=== PATIENT | female | born 1995 | race Caucasian/White ===

== ENCOUNTER 2017-10-12 16:24 | Emergency (ER) | payer OTHER ==
[2017-10-12 16:51] VITALS: BP 109/59
--- NOTE | 2017-10-12 18:28 | ER Document Report ---
ED Medical Screen (RME) - General Chief Complaint: Vag Bleeding, +preg <12wks Stated Complaint: VAGINAL BLEEDING/CRAMPING Time Seen by Provider: 10/12/17 18:27 Notes: Patient states that she believes she is 3-4 days late on her period. She states that she has had 3 positive test at home. She states today she began with cramping and bleeding. TRAVEL OUTSIDE OF THE [place] IN LAST 30 DAYS: No - Related Data Allergies/Adverse Reactions: No Known Allergies Allergy (Unverified 10/12/17 16:28) Past Medical History - General Last Menstrual Period: 09/06/2017 - Social History Chew tobacco use (# tins/day): No Frequency of alcohol use: None Drug Abuse: None Renal/ Medical History: Denies: Hx Peritoneal Dialysis Past Surgical History: Reports: Hx Section Physical Exam - Vital signs Vitals: Temp Pulse Resp BP Pulse Ox 99.2 F 81 16 109/59 L 100 10/12/17 16:50 10/12/17 16:50 10/12/17 16:50 10/12/17 16:50 10/12/17 16:50 Course - Vital Signs Vital signs: Temp Pulse Resp BP Pulse Ox 99.2 F 81 16 109/59 L 100 10/12/17 16:50 10/12/17 16:50 10/12/17 16:50 10/12/17 16:50 10/12/17 16:50
[2017-10-12 18:50] LABS: ABSOLUTE BASOPHILS # (AUTO) 0.1 10^3/uL (0.0-0.2); ABSOLUTE EOSINOPHILS # (AUTO) 0.2 10^3/uL (0.0-0.6); ABSOLUTE LYMPHOCYTES (AUTO) 3.7 10^3/uL (0.5-4.7); ABSOLUTE MONOCYTES (AUTO) 0.9 10^3/uL (0.1-1.4); ABSOLUTE NEUT (AUTO) 9.4 10^3/uL (1.7-8.2); BASOPHILS % (AUTO) 0.4 % (0-2); EOSINOPHILS % (AUTO) 1.3 % (0-6); HEMATOCRIT 35.4 % (36.0-47.0); HEMOGLOBIN 10.7 g/dL (12.0-15.5); LYMPHOCYTES % (AUTO) 26.3 % (13-45); MEAN CORPUSCULAR HEMOGLOBIN 21.5 pg (27.0-33.4); MEAN CORPUSCULAR HGB CONC 30.3 g/dL (32.0-36.0); MEAN CORPUSCULAR VOLUME 71 fl (80-97); PLATELET COUNT 405 10^3/uL (150-450); RED BLOOD COUNT 4.99 10^6/uL (3.72-5.28); RED CELL DISTRIBUTION WIDTH 18.6 % (11.5-14.0); TOTAL CELLS COUNTED % (AUTO) 100 %; WHITE BLOOD COUNT 14.2 10^3/uL (4.0-10.5)
[2017-10-12 19:10] LABS: APPEARANCE,URINE CLEAR; BILIRUBIN,URINE NEGATIVE (NEGATIVE); COLOR,URINE YELLOW; GLUCOSE, URINE NEGATIVE (NEGATIVE); KETONES,URINE NEGATIVE (NEGATIVE); LEUKOCYTE ESTERASE,URINE NEGATIVE (NEGATIVE); NITRITE,URINE NEGATIVE (NEGATIVE); PROTEIN,URINE NEGATIVE (NEGATIVE); URINE SPECIFIC GRAVITY 1.019
[2017-10-12 19:12] LABS: ALANINE AMINOTRANSFERASE 23 U/L (9-52); ALBUMIN 4.4 g/dL (3.5-5.0); ALKALINE PHOSPHATASE 85 U/L (38-126); ANION GAP 13 (5-19); ASPARTATE AMINO TRANSFERASE 15 U/L (14-36); BILIRUBIN,DIRECT 0.1 mg/dL (0.0-0.4); BILIRUBIN,TOTAL 0.1 mg/dL (0.2-1.3); BLOOD UREA NITROGEN 8 mg/dL (7-20); CALCIUM 9.7 mg/dL (8.4-10.2); CARBON DIOXIDE 26 mmol/L (22-30); CHLORIDE 106 mmol/L (98-107); GLUCOSE 96 mg/dL (75-110); POTASSIUM 3.9 mmol/L (3.6-5.0); SODIUM 144.6 mmol/L (137-145); TOTAL PROTEIN 7.5 g/dL (6.3-8.2)
--- NOTE | 2017-10-12 19:53 | RADIOLOGY REPORT (SQ) ---
EXAM DESCRIPTION: U/S OB TRANSVAGINAL W/O DOP COMPLETED DATE/TIME: 10/12/2017 7:44 pm REASON FOR STUDY: pain/bleeding/preg COMPARISON: None. TECHNIQUE: Transvaginal static and realtime grayscale images acquired of the pelvis. Additional joe cted spectral and color Doppler images recorded. All images stored on PACs. BHC.6 LIMITATIONS: None. FINDINGS: UTERUS: No visualized intrauterine . Possibly tiny gestational sac lower uterine segment. RIGHT ADNEXA: Ovary not identified. No adnexal free fluid. No adnexal masses. LEFT ADNEXA: Ovary not identified. No adnexal free fluid. No adnexal masses. FREE FLUID: None. OTHER: No other significant finding. IMPRESSION: No definitive intrauterine . There is possibly a tiny gestational sac in the l ower uterine segment. Likely AB in progress. Consider serial followup by beta HCG. FOLLOW-UP ULTRASOUND AND SERIAL BHCG LEVELS STRONGLY RECOMMENDED TO ACCURATELY ASSESS STATU S. TECHNICAL DOCUMENTATION: JOB ID: [id number] [employer]- All Rights Reserved Reading location - IP/workstation name: [email or web address]
--- NOTE | 2017-10-12 20:17 | ER Document Report ---
ED General - General Chief Complaint: Vag Bleeding, +preg <12wks Stated Complaint: VAGINAL BLEEDING/CRAMPING Time Seen by Provider: 10/12/17 18:27 TRAVEL OUTSIDE OF THE [place] IN LAST 30 DAYS: No - HPI Patient complains to provider of: Vaginal bleeding positive Notes: Patient coming in for vaginal spotting starting last 24 hours patient states she has gone through approximately 2 packs a day. Patient states to go home test that was positive last menstrual cycle was partially 4 weeks ago. Patient is a . Denies any trauma denies any recent sexual intercourse. Patient denies any vaginal discharge states lower abdominal cramping and lower back pain. - Related Data Allergies/Adverse Reactions: No Known Allergies Allergy (Unverified 10/12/17 16:28) Past Medical History - General Last Menstrual Period: 09/06/2017 - Social History Smoking Status: Smoker,Current Status Unk Chew tobacco use (# tins/day): No Frequency of alcohol use: None Drug Abuse: None Family History: Reviewed & Not Pertinent Patient has suicidal ideation: No Patient has homicidal ideation: No Renal/ Medical History: Denies: Hx Peritoneal Dialysis Past Surgical History: Reports: Hx Section Review of Systems - Review of Systems Constitutional: No symptoms reported EENT: No symptoms reported Cardiovascular: No symptoms reported Respiratory: No symptoms reported Gastrointestinal: No symptoms reported Genitourinary: No symptoms reported Female Genitourinary: Vaginal bleeding Musculoskeletal: No symptoms reported Skin: No symptoms reported Hematologic/Lymphatic: No symptoms reported Neurological/Psychological: No symptoms reported -: Yes All other systems reviewed and negative Physical Exam - Vital signs Vitals: Temp Pulse Resp BP Pulse Ox 99.2 F 81 16 109/59 L 100 10/12/17 16:50 10/12/17 16:50 10/12/17 16:50 10/12/17 16:50 10/12/17 16:50 Interpretation: Normal - General General appearance: Appears well, Alert - HEENT Head: Normocephalic, Atraumatic Eyes: Normal Pupils: PERRL - Respiratory Respiratory status: No respiratory distress Chest status: Nontender Breath sounds: Normal Chest palpation: Normal - Cardiovascular Rhythm: Regular Heart sounds: Normal auscultation Murmur: No - Abdominal Inspection: Normal Distension: No distension Bowel sounds: Normal Tenderness: Nontender Organomegaly: No organomegaly - Back Back: Normal, Nontender - Extremities General upper extremity: Normal inspection, Nontender, Normal color, Normal ROM , Normal temperature General lower extremity: Normal inspection, Nontender, Normal color, Normal ROM , Normal temperature, Normal weight bearing. No: Magda's sign - Neurological Neuro grossly intact: Yes Cognition: Normal Orientation: AAOx4 [place] Coma Scale Eye Opening: Spontaneous [place] Coma Scale Verbal: Oriented Cornelius Coma Scale Motor: Obeys Commands Cornelius Coma Scale Total: 15 Speech: Normal Motor strength normal: LUE, RUE, LLE, RLE Sensory: Normal - Psychological Associated symptoms: Normal affect, Normal mood - Skin Skin Temperature: Warm Skin Moisture: Dry Skin Color: Normal Course - Re-evaluation Re-evalutation: 10/12/17 23:12 Laboratory studies showed beta-hCG of 10 with a ultrasound showing a gestational sac. Concern for miscarriage however at this time will have the patient follow-up in 4872 hours for repeat beta-hCG testing. Patient is to observe pelvic rest. Patient is continue with vitamins. Patient states understanding will discharge home - Vital Signs Vital signs: Temp Pulse Resp BP Pulse Ox 99.2 F 81 16 109/59 L 100 10/12/17 16:50 10/12/17 16:50 10/12/17 16:50 10/12/17 16:50 10/12/17 16:50 - Laboratory Result Diagrams: 10/12/17 18:37 10/12/17 18:37 Laboratory results interpreted by me: 10/12/17 10/12/17 10/12/17 18:37 18:37 18:37 WBC 14.2 H Hgb 10.7 L Hct 35.4 L MCV 71 L MCH 21.5 L MCHC 30.3 L RDW 18.6 H Absolute Neutrophils 9.4 H Total Bilirubin 0.1 L Beta HCG, Quant 10.60 H Urine Blood LARGE H Urine Urobilinogen 4.0 H Discharge - Discharge Clinical Impression: Vaginal bleeding before 22 weeks gestation Condition: Good Disposition: HOME, SELF-CARE Instructions: Bleeding During Early ([facility]), [facility] Additional Instructions: Your ultrasound shows possibility of a gestational sac with a positive test. Recommend following up in approximately 48-72 hours for repeat beta-hCG testing. Please observe pelvic rest nothing inside the vagina including toys tampons no sex. Please take vitamins as prescribed return to ER for any concerns. Tylenol for pain control. Prescriptions: Prenat 115/Iron Fum/Folic/Dss [ 19 Tablet] 1 each PO DAILY #30 tablet Forms: Follow-Up Laboratory Testing
== END 2017-10-12 20:25 | disposition home or self-care (01) ==
LOC: ER 16:24
DX: O20.9 Hemorrhage in early pregnancy, unspecified (principal)
CPT/HCPCS: 36415; 76817; 80053; 81001; 84702; 85025; 86900; 86901; 99284

== ENCOUNTER → 2017-10-15 | Outpatient (CLI) | payer OTHER, MEDICAID | LOC: LAB 10:49 | PROVIDERS: ATTEND Emergency Medicine | DX: O46.90 Antepartum hemorrhage, unspecified, unspecified trimester (principal) | CPT/HCPCS: 36415; 84702 ==